=== PATIENT | female | born 1970 | race Caucasian/White ===

== ENCOUNTER 2023-01-15 13:43 | Outpatient (AMB) | payer OTHER, SELFPAY ==
--- NOTE | 2023-01-15 14:04 | MHC.OFFWIV ---
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 Allergies Penicillins [PENICILLINS] Allergy (Intermediate, Unverified 01/15/23 14:13) RASH Do you need a note to return to daycare/school/sports/work: No HPI HPI Comments History of Present Illness Details This is a 53-year-old female who presents to the office today for sick visit. Patient complaining of dysuria and increased urinary frequency/urgency x1 day. Patient denies fever/chills. She denies any flank or back pain. She denies any abdominal pain or nausea/vomiting/diarrhea. She denies any hematuria. Patient is otherwise feeling well. Review of Systems Const All systems reviewed & are unremarkable except as noted in HPI and below Reports no additional complaints Eyes Reports no additional complaints ENT Reports no additional complaints Card Reports no additional complaints Resp Reports no additional complaints GI Reports no additional complaints Reports no additional complaints Musc Reports no additional complaints Skin/Breast Reports system reviewed and no additional complaints, except as documented Neuro Reports no additional complaints Psych Reports no additional complaints Endo Reports no additional complaints Ethan/Lymph Reports no additional complaints Aller/Immun Reports no additional complaints Physical Exam Vital Signs: Last Vital Signs Temp 98.7 F 01/15/23 14:08 Pulse 94 01/15/23 14:08 BP 138/78 01/15/23 14:08 Pulse Ox 97 01/15/23 14:08 Oxygen Delivery Method Room Air 01/15/23 14:08 BMI result Body Mass Index 33.6 Const General: cooperative, healthy appearing, no acute distress and well developed Orientation/consciousness: patient oriented x3 HEENT Head: Yes normal to inspection Ears: hearing grossly normal bilaterally General nose exam: Normal external nose present Face and sinus: Yes normal facial exam Mouth: Normal oral and palatal mucosa present Eyes General: appearance normal, both eyes and all related structures Pupils: Equal, round and reactive pupils present EOM: EOMs intact bilaterally Resp Effort & Inspection: normal respiratory effort and no respiratory distress Auscultation: clear to auscultation bilaterally Cardio Rate: regular rate Rhythm: regular rhythm Heart sounds: no gallops, no murmurs and no rubs Peripheral pulses: Peripheral pulses 2+ throughout GI Inspection: No distended Palpation (GI): Soft to palpation and nontender Auscultation: normal bowel sounds General: Yes no CVA tenderness Back/Spine/Pelvis Back: no CVA tenderness Skin General skin exam: no rashes or lesions noted Neuro General: patient oriented x3 Cranial nerves: Yes CN's II-XII intact bilaterally and Yes Equal, round and reactive pupils present Gait exam (Neuro): Normal gait present Motor exam (neuro): 5/5 motor strength present throughout Extrem General: Yes normal to inspection, Yes full ROM and Yes no clubbing, cyanosis or edema Psych Appearance: grossly normal Mental Status: mental status grossly normal Results AMB Urinalysis, Automated UA Leukoctes 3 Landen/uL Last Edit by Li Mohr CMA on 01/15/23 14:21 UA Nitrite Negative Last Edit by Li Mohr CMA on 01/15/23 14:21 UA Urobilinogen 0.2 mg/dL Last Edit by Li Mohr CMA on 01/15/23 14:21 UA Protein 0 mg/dL Last Edit by Li Mohr CMA on 01/15/23 14:21 UA pH 6.0 Last Edit by Li Mohr CMA on 01/15/23 14:21 UA Blood 1 Vikash/uL Last Edit by Li Mohr CMA on 01/15/23 14:21 UA Specific [place] 1.010 Last Edit by Li Mohr CMA on 01/15/23 14:21 UA Ketone Negative Last Edit by Li Mohr CMA on 01/15/23 14:21 UA Bilirubin 0 mg/dL Last Edit by Li Mohr CMA on 01/15/23 14:21 UA Glucose 0 mg/dL Last Edit by Li Mohr CMA on 01/15/23 14:21 Assessment & Plan Assessment & Plan (1) UTI (urinary tract infection): Code(s): N39.0 - Urinary tract infection, site not specified Plan Patient presenting to the office complaining of urinary symptoms including dysuria and increased urinary frequency/urgency. POCT urinalysis shows positive leukocyte esterase. Patient's vital signs are stable, physical exam is benign, and patient is overall nontoxic appearing. No CVA tenderness or systemic symptoms to suggest acute pyelonephritis. Patient is safe to be discharged home. History and physical most consistent with an acute uncomplicated urinary tract infection. Patient sent home on PO trimethoprim-sulfamethoxazole twice daily x7 days. Recommended symptomatic management including increased fluids, Advil/Tylenol as needed for pain as long as patient has no medical contraindications, and PO phenazopyridine three times daily as needed x 3 days for bladder spasms. Patient was advised to follow-up here or proceed directly to the emergency room if they were to develop fever/chills, nausea/vomiting, flank/back pain, or worsening/persistent symptoms. Patient verbalizes understanding and they are in agreement with the plan. Orders: Orders Urine Culture Today R30.0 - Dysuria AMB Urinalysis Automated Today R30.0 - Dysuria Medications: New sulfamethoxazole-trimethoprim 800-160 mg 1 tab PO BID 14 tabs 0RF phenazopyridine 200 mg PO TID PRN 9 tabs 0RF pain Coding Level of Care Code New Pt Level 3 (33234) Diagnoses UTI (urinary tract infection) N39.0
[2023-01-15 14:08] VITALS: BP 138/78; PULSE 94; TEMP 37.1; O2SAT 97; BMI 33.6
== END 2023-01-15 14:30 | disposition home or self-care (01) ==
PROVIDERS: PCP Nurse Practitioner Adult Health; Visit Provider Physician Assistant Medical
DX: N39.0 Urinary tract infection, site not specified (principal); R30.0 Dysuria
CPT/HCPCS: 81003; 99051; 99203

== ENCOUNTER 2023-01-15 15:13 | Outpatient (REF) | payer OTHER, SELFPAY | END 2023-01-15 15:14 | disposition home or self-care (01) | LOC: HO.HMGCLNP 15:13 | PROVIDERS: Visit Provider Physician Assistant Medical | DX: R30.0 Dysuria (principal) | CPT/HCPCS: 87086 ==

== ENCOUNTER 2024-02-24 18:29 | Emergency (ER) | payer OTHER, SELFPAY ==
--- NOTE | ~2024-02-24 | XR_ITS ---
EXAMINATION: XR ANKLE, LEFT CLINICAL INFORMATION: Bruising to lateral ankle status post fall COMPARISON: None available. TECHNIQUE: AP, lateral, and mortise views of the left ankle. FINDINGS: No fracture. Alignment is anatomic. No erosions. Joint spaces are maintained. Soft tissues are normal. XR/XR ankle LT min 3V IMPRESSION: Normal left ankle. Electronically signed by: Seb Dwyer DO 02/24/2024 09:43 PM EDT
--- NOTE | ~2024-02-24 | XR_ITS ---
EXAMINATION: XR FOOT, LEFT CLINICAL INFORMATION: Bruising to lateral foot COMPARISON: None available. TECHNIQUE: AP, lateral, and oblique views of the left foot. FINDINGS/ XR/XR foot LT min 3V IMPRESSION: Minimally displaced oblique fracture through the fifth distal metatarsal with overlying soft tissue swelling. No other fractures are identified. No radiopaque foreign bodies. Electronically signed by: Seb Dwyer DO 02/24/2024 09:45 PM EDT
[2024-02-24 19:39] VITALS: BP 130/70; PULSE 88; RESP 16; TEMP 37.1; O2SAT 95; BMI 36.0
--- NOTE | 2024-02-24 19:41 | ED.LOWEXIN ---
HPI - Extremity Injury (Lower) General Chief Complaint: Extremity Injury, Lower Stated Complaint: LT foot inj Time Seen by Provider: 02/24/24 20:45 Source: patient Mode of arrival: ambulatory Limitations: no limitations History of Present Illness HPI Narrative: Patient is a 54-year-old female presents emergency department for evaluation after mechanical trip and fall down a step that occurred yesterday afternoon. Reports an inversion injury to the foot. Endorsing pain to the ankle in the lateral aspect of her left foot. Notable ecchymosis and swelling over the lateral midfoot. Has been using crutches to get around. Took Tylenol prior to arrival. Denies numbness tingling or cold sensation to the foot.. Related Data Home Medications ?Medication ?Instructions ?Recorded ?Confirmed bupropion HCl 150 mg 24 hr tablet, 150 mg PO QAM 01/15/23 extended release buspirone 10 mg tablet mg PO 01/15/23 clonazepam 0.5 mg tablet 1 mg PO BID 01/15/23 lamotrigine 200 mg tablet 200 mg PO BID 01/15/23 solifenacin 5 mg tablet 5 mg PO DAILY 01/15/23 venlafaxine 225 mg tablet,extended 225 mg PO DAILY 01/15/23 release 24 hr Previous Rx's ?Medication ?Instructions ?Recorded phenazopyridine 200 mg tablet 200 mg PO TID PRN pain #9 tabs 01/15/23 sulfamethoxazole 800 1 tab PO BID #14 tabs 01/15/23 mg-trimethoprim 160 mg tablet oxycodone 5 mg tablet 5 mg PO Q6H PRN pain #10 tabs 02/24/24 Allergies Allergy/AdvReac Type Severity Reaction Status Date / Time No Known Allergies Allergy Verified 02/24/24 19:44 Review of Systems Review of Systems: Yes all other systems are reviewed and are negative [facility] Past Medical History Attestation statement: The following information was validated with the patient. Source: old records reviewed Social History Social History Advance Directives: No Advance Directives Information Provided: No Physical Exam Vital Signs: Vital Signs: Last Vital Signs Temp 97.6 F 02/24/24 22:25 Pulse 80 02/24/24 22:25 Resp 18 02/24/24 22:25 BP 120/72 02/24/24 22:25 Pulse Ox 98 02/24/24 22:25 O2 Del Method Room Air 02/24/24 22:25 BMI result Body Mass Index 36.0 Appearance: Alert.?Oriented to person, place and time. No acute distress.?Normal affect. CVS: Heart sounds normal. Normal heart rate and rhythm.? Pulses normal.?? Respiratory: No respiratory distress.? Lung sounds clear to auscultation bilaterally?? Abdomen: Soft and non-tender. Normoactive bowel sounds. Skin: Skin warm and dry.? Normal skin color.? Extremities: No lower extremity edema.? 2+ DP/PT pulse bilaterally. Left mid foot with ecchymosis and swelling, decreased AROM to the ankle Neuro: Moves all extremities spontaneously. Sensation intact bilaterally. . No focal neuro deficits. Ambulates with antalgic gait. Course Course Course Narrative: This is a Rapid Medical Examination (RME) performed by Jone Molina PA-C in triage. Full HPI, ROS, assessment and treatment plan per primary provider in the Main ED. 54 yo female here for eval of left foot/ ankle pain s/p tripping down a step around 1500 yesterday. no head strike or loc. no thinners. unable to bear wt on the foot, using crutches at home. took tylenol [employer]MENT [employer] in ED. + noted swelling/ ecchymosis to lateral left foot/ ankle. ttp. nv intact distally. Plan: xr Medical Decision Making Medical Decision Making MDM Narrative: Patient is a 54-year-old female who presents emergency department for evaluation after mechanical trip and fall yesterday afternoon. Endorsing pain to the left foot and ankle, antalgic gait, pain is worse with weight-bearing. As localized swelling to the mid foot with ecchymosis concerning for possible fracture. XR obtained and reveals a 5th metatarsal shaft fracture, no acute findings of the ankle, patient was placed in a posterior short-leg splint, remained neurovascularly intact distally after application. She endorsed no head strike with a small consciousness, neurologically she is intact. Outpatient follow-up with Orthopedics, reviewed worrisome signs and symptoms that would warrant re-evaluation in the emergency department, discussed conservative treatment. All questions answered. Stable for discharge Differential Diagnosis Differential Diagnoses: The differential diagnosis associated with the presentation includes (See narrative above) Independent Interpretation I performed an independent interpretation of an: Plain X-Ray (Left 5th metatarsal shaft fracture) Radiology Impression Discussion of test interpretation with radiology: I have reviewed the radiologist's reading. Radiologist Impression: XR/XR ankle LT min 3V IMPRESSION: Normal left ankle. XR/XR foot LT min 3V IMPRESSION: Minimally displaced oblique fracture through the fifth distal metatarsal with overlying soft tissue swelling. No other fractures are identified. No radiopaque foreign bodies. Independent Historian Clinical information obtained from an independent historian. History obtained from or confirmed by: Spouse External Record Review External record reviewed: Outpatient record and Other (AREA FORESTER reviewed) Prescription Management I considered prescription management with: Pain Medication Procedures Orthopedic Splinting/Casting Injury #1: Side: left Lower Extremity Injury Location: foot Lower Extremity Immobilizer: posterior splint Other Orthopedic Equipment: crutches Discharge Plan Discharge Clinical Impression: Metatarsal fracture Patient Disposition: Home, Self-Care Instructions: Crutch Instructions (ED), Foot Fracture in Adults (ED) Additional Instructions: Be sure to rest, apply ice for 10-15 minutes 3-4 times daily, elevate the leg above the level of the chest. You can take ibuprofen 200 mg, 3 tablets (600mg) every 6-8 hours as needed for pain, in addition to Tylenol 500 mg, 2 tablets (1,000mg) every 4-6 hours as needed for pain, but not to exceed 3 doses daily (3,000mg).? For severe pain that is unrelieved by ibuprofen/Tylenol you may take oxycodone. This is a narcotic medication. It can be addicting. It may make you drowsy. You should not drive, drink alcohol, or work while taking this medication. This splint must remain in place at all times can not get wet. Contact the orthopedic office first thing Tuesday to arrange for a follow-up visit. Return to emergency department any new or worsening symptoms or concerns Prescriptions: New oxycodone 5 mg tablet 5 mg PO Q6H PRN (Reason: pain) Qty: 10 0RF Rx Instructions: Partial Fill upon patient request. No Action clonazepam 0.5 mg tablet 1 mg PO BID venlafaxine 225 mg tablet extended release 24hr 225 mg PO DAILY bupropion HCl 150 mg tablet extended release 24 hr 150 mg PO QAM buspirone 10 mg tablet PO solifenacin 5 mg tablet 5 mg PO DAILY lamotrigine 200 mg tablet 200 mg PO BID sulfamethoxazole-trimethoprim 800-160 mg tablet 1 tab PO BID Qty: 14 0RF phenazopyridine 200 mg tablet 200 mg PO TID PRN (Reason: pain) Qty: 9 0RF Referrals: Nohemy Gross PA-C [[facility]] - Discharge Date/Time: 02/24/24 23:47 Print Language: [place]an
[2024-02-24 22:25] VITALS: BP 120/72; PULSE 80; RESP 18; TEMP 36.4; O2SAT 98
== END 2024-02-24 23:47 | disposition home or self-care (01) ==
PROVIDERS: Emergency Provider Internal Medicine
DX: S92.352A Displaced fracture of fifth metatarsal bone, left foot, initial encounter for closed fracture (principal); W10.8XXA Fall (on) (from) other stairs and steps, initial encounter; Y93.89 Activity, other specified; Y92.9 Unspecified place or not applicable; Y99.9 Unspecified external cause status
CPT/HCPCS: 29515; 73610; 73630; 99282; 99283

== ENCOUNTER 2024-03-01 09:13 | Outpatient (AMB) | payer OTHER, SELFPAY ==
[2024-03-01 09:15] VITALS: BMI 36.0
--- NOTE | 2024-03-01 09:15 | MHC.OFFVIS ---
Vital Signs 03/01/24 09:15 Height 5 ft 4 in Weight 210 lb BMI 36.0 Intake Visit Reasons: FC - left 5th metatarsal fx, DOI 02/23/24 Intake Note: Damari is a 54 year old female who presents today for a evaluation of her left 5th metatarsal fx, DOI 02/23/24. Patient reports she had a mechanical trip and fall down a step. She mentions that missed the lat step in her basement. Allergies No Known Allergies Allergy (Verified 03/01/24 09:26) Medication List - Last Reconciled 03/01/24 by Nohemy Gross PA-C bupropion HCl XL 150 mg PO QAM clonazepam 1 mg PO BID lamotrigine 200 mg PO BID oxycodone 5 mg PO Q6H PRN phenazopyridine 200 mg PO TID PRN solifenacin 5 mg PO DAILY sulfamethoxazole-trimethoprim 800-160 mg 1 tab PO BID venlafaxine ER 225 mg PO DAILY HPI HPI FC - left 5th metatarsal fx, DOI 02/23/24: Details: 54-year-old female who presents in the office today, as a new patient, for an evaluation of left fifth distal metatarsal fracture. The patient presented to the ED on 02/24/24 status post a mechanical trip and fall down a step, which occurred on 02/23/24. He reported pain in the lateral aspect of the left ankle. X-rays of the left foot and left ankle were obtained. She was placed in a posterior short-leg splint and was recommended resting, elevation, and icing. She was advised to take OTC ibuprofen 200 mg 3 tablets Q6-8H PRN or OTC Tylenol 500 mg 2 tablets Q4-6H PRN not exceeding 3000 mg daily for pain. The patient was prescribed oxycodone 5 mg pO Q6H PRN for pain and recommended to take it should the pain be unrelieved by ibuprofen or Tylenol. While in the office today, the patient confirms that she had a mechanical trip and fall, by missing the last step in her basement. Review of Systems Const All systems reviewed & are unremarkable except as noted in HPI and below Physical Exam Vital Signs: BMI result Body Mass Index 36.0 Const General: cooperative and no acute distress Orientation/consciousness: patient oriented x3 Resp Effort & Inspection: normal respiratory effort and able to speak in complete sentences Cardio Peripheral pulses: Peripheral pulses 2+ throughout Skin General skin exam: no rashes or lesions noted Neuro General: patient oriented x3 Extrem Other: Left foot: Diffuse ecchymosis at the base of the toes and along the lateral aspect of the heel. Slight tenderness to palpation over the fifth metatarsal over the fracture. Able to perform dorsiflexion, plantar flexion, pronation and supination with mild discomfort. Sensation intact. Pedal pulse intact. Office Procedures AMB Fracture Care Fracture Billing Code: Fracture Billing Code Assessment & Plan Assessment & Plan (1) Fracture of fifth metatarsal bone of left foot: Code(s): S92.352A - Displaced fracture of fifth metatarsal bone, left foot, initial encounter for closed fracture Category: Medical Plan Ms. Gonzalez is a 54-year-old female who presents in the office today, as a new patient, for an evaluation of left fifth distal metatarsal fracture. The patient presented to the ED on 02/24/24 status post a mechanical trip and fall down a step, which occurred on 02/23/24. He reported pain in the lateral aspect of the left ankle. X-rays of the left foot and left ankle were obtained. She was placed in a posterior short-leg splint and was recommended resting, elevation, and icing. She was advised to take OTC ibuprofen 200 mg 3 tablets Q6-8H PRN or OTC Tylenol 500 mg 2 tablets Q4-6H PRN not exceeding 3000 mg daily for pain. The patient was prescribed oxycodone 5 mg pO Q6H PRN for pain and recommended to take it should the pain be unrelieved by ibuprofen or Tylenol. While in the office today, the patient confirms that she had a mechanical trip and fall, by missing the last step in her basement. The patient was provided a short walking boot, off the shelf. She may weight bear as tolerated. Follow-up will be in 4 weeks with repeat x-rays, or sooner if needed. X-rays of the left foot which were obtained while in the office today and were reviewed by me, Nohemy Gross PA-C, revealed: Fifth metatarsal shaft fracture. X-rays of the left foot, obtained on 02/24/24, revealed: Minimally displaced oblique fracture through the fifth distal metatarsal with overlying soft tissue swelling. No other fractures are identified. No radiopaque foreign bodies. X-rays of the left ankle, obtained on 02/24/24, revealed: Normal left ankle. Orders: Orders XR foot LT min 3V Today M79.673 - Pain in unspecified foot Patient Instructions: Scribed by Norma Gloria, medical doctor md/medical director, for Nohemy Anthonymalissa PORTER on 03/01/24 at 09:32 am EST. Coding Level of Care Code New Pt Level 4 (90438) Diagnoses Fracture of fifth metatarsal bone of left foot S92.352A CPT Codes Fracture Care - Fracture Billing Code: Fracture Billing Code ([id number])
== END 2024-03-01 09:50 | disposition home or self-care (01) ==
PROVIDERS: Visit Provider Physician Assistant
DX: S92.352A Displaced fracture of fifth metatarsal bone, left foot, initial encounter for closed fracture (principal)
CPT/HCPCS: 99203

== ENCOUNTER 2024-03-01 13:56 | Outpatient (REF) | payer OTHER, SELFPAY ==
--- NOTE | ~2024-03-01 | XR_ITS ---
EXAMINATION: XR FOOT, LEFT CLINICAL INFORMATION: Pain in the foot COMPARISON: X-rays of the left foot February 24, 2024 TECHNIQUE: AP, lateral, and oblique views of the left foot. FINDINGS: The oblique fracture of the distal 5th metatarsal is redemonstrated but unchanged appearance and alignment. No callus formation noted. The remaining bones joints and soft tissues are unremarkable. XR/XR foot LT min 3V IMPRESSION: Unchanged appearance of distal 5th metatarsal fracture. Electronically signed by: Milo Romero MD 03/07/2024 11:15 AM EDT
== END 2024-03-01 13:57 | disposition home or self-care (01) ==
LOC: HO.HOSX 13:56
PROVIDERS: Visit Provider Physician Assistant
DX: M79.673 Pain in unspecified foot (principal); S92.352D Displaced fracture of fifth metatarsal bone, left foot, subsequent encounter for fracture with routine healing
CPT/HCPCS: 73630

== ENCOUNTER 2024-03-29 10:09 | Outpatient (REF) | payer OTHER, SELFPAY | END 2024-03-29 10:10 | disposition home or self-care (01) | LOC: HO.HOSX 10:09 | PROVIDERS: Visit Provider Physician Assistant | DX: M79.672 Pain in left foot (principal) | CPT/HCPCS: 73630 ==

== ENCOUNTER 2024-03-29 12:54 | Outpatient (AMB) | payer OTHER, SELFPAY ==
--- NOTE | 2024-03-29 13:10 | A.OFFVIS_ITS ---
Intake Visit Reasons: OV- left 5th metatarsal fx, DOI 02/23/24-w/xray Intake Note: Damari is a 54 year old female who presents today for a follow up of her left 5th metatarsal fx, DOI 02/23/24. Patient reports she is having some swelling and soreness on the lateral aspect of her foot. Denies numbness and tingling in her toes. Allergies No Known Allergies Allergy (Verified 03/29/24 13:16) HPI HPI OV- left 5th metatarsal fx, DOI 02/23/24-w/xray: Details: 54-year-old female who presents in the office today for a follow-up of left fifth distal metatarsal fracture status post mechanical trip and fall down a step, which occurred on 02/23/24. I last saw the patient in the office on 03/01/2024 when she was placed in a short walking boot and recommended she may bear weight as tolerated. While in the office today, the patient reports having mild edema and soreness on the lateral aspect of her left foot. She denies numbness or tingling sensation in the left toes. Review of Systems Const All systems reviewed & are unremarkable except as noted in HPI and below Physical Exam Const General: cooperative, healthy appearing and no acute distress Orientation/consciousness: patient oriented x3 Resp Effort & Inspection: normal respiratory effort and able to speak in complete sentences Cardio Rate: regular rate Peripheral pulses: Peripheral pulses 2+ throughout GI Palpation (GI): Soft to palpation Skin General skin exam: no rashes or lesions noted Lesions: no lesions Rashes: no rashes Neuro General: patient oriented x3 Extrem Other: Left foot: Slight tenderness to palpation over the fifth metatarsal over the fracture with associated mild edema. Able to perform dorsiflexion, plantar flexion, pronation and supination with mild discomfort. Sensation intact. Pedal pulse intact. Assessment & Plan Assessment & Plan (1) Fracture of fifth metatarsal bone of left foot: Code(s): S92.352A - Displaced fracture of fifth metatarsal bone, left foot, initial encounter for closed fracture Category: Medical Plan Ms. Gonzalez is a 54-year-old female who presents in the office today for a follow-up of left fifth distal metatarsal fracture status post mechanical trip and fall down a step, which occurred on 02/23/24. I last saw the patient in the office on 03/01/2024 when she was placed in a short walking boot and recommended she may bear weight as tolerated. While in the office today, the patient reports having mild edema and soreness on the lateral aspect of her left foot. She denies numbness or tingling sensation in the left toes. The patient has weaned herself into St shoes at this time. I did educate her to immediately return to the boot if she experiences increased pain. She reports that she is doing very well with very minimal discomfort. I did offer her to follow up in four weeks with repeat x-rays; however, she declined at this time. I did educate the patient that she should contact the office if she has any questions, concerns or increase in pain. Follow up will be PRN, or sooner if needed. X-rays of the left foot, which were obtained while in the office today and were reviewed by me, Nohemy Gross PA-C, revealed: Routine healing of the fifth distal metatarsal fracture. Orders: Orders XR foot LT min 3V 03/29/24 M79.673 - Pain in unspecified foot Patient Instructions: Scribed by Norma Gloria, medical technician assistant, for Nohemy Gross PA-C on 03/29/24 at 1:50 pm EST. Coding Level of Care Code Global (41571) Diagnoses Fracture of fifth metatarsal bone of left foot S92.352A
== END 2024-03-29 13:51 | disposition home or self-care (01) ==
LOC: HO.HOS 12:54
PROVIDERS: Visit Provider Physician Assistant
DX: S92.352A Displaced fracture of fifth metatarsal bone, left foot, initial encounter for closed fracture (principal)
CPT/HCPCS: 99213

== ENCOUNTER 2024-12-07 12:57 | Outpatient (REF) | payer OTHER, SELFPAY ==
--- NOTE | ~2024-12-07 | US_ITS ---
CLINICAL HISTORY: menopausal bleeding Ultrasound of the female pelvis Comparison: None provided Technique: Grayscale ultrasound with assistance of color Doppler. Transabdominal scanning performed for overall anatomy. Transvaginal scanning performed for better anatomic delineation. Findings: Retroflexed uterus measures 8.2 x 4.1 x 4.5 cm. Heterogeneous myometrium, intramural fibroid in the posterior uterine body 2.7 x 1.6 x 1.6 cm. Diverging fundal endometrium, flat external fundus contour, probably arcuate uterus, the endometrium is homogeneously hyperechoic, 6 mm in thickness, no focal lesion is seen. Unremarkable cervix. Normal right ovary, 2.5 x 1.4 x 1.2 cm. No abnormal vascular flow. Normal left ovary, 2.3 x 1.0 x 1.0 cm. No abnormal vascular flow. No free fluid. Impression: 6 mm endometrium without focal lesion seen. This document has been electronically signed by: Mariaelena Adhikari MD on 12/07/2024 14:22:13
--- OUTSIDE RECORDS SUMMARY | 2024-12-07 12:58 | XMS_ITS | Encounter Summary ---
Author Organization [facility] Address [address] [place] [phone] Phone Care Team Providers Care Supervisor [employer] Name Role Phone Pcp, Unknown Primary Care Provider Unavailabl e Encounter Details Date Type Department Care Team (Latest Contact Info) Description 01/07/2021 Transcribe Orders Virtual Department [address] [place] [address] Graciela Conroy, DO [address] [place] [address] [email or web address] Cough (Primary Dx); Sore throat; Runny nose Social History Tobacco Use Types Packs/Day Years Used Date Smoking Tobacco: Never Assessed Comments Unknown Sex and Gender Information Value Date Recorded Sex Assigned at Not on file Legal Sex Female 9:36 PM EDT Gender Identity Not on file Sexual Orientation Not on file documented as of this encounter Plan of Treatment Not on file documented as of this encounter Visit Diagnoses Diagnosis Cough- Primary Sore throat Acute pharyngitis Runny nose Other diseases of nasal cavity and sinuses documented in this encounter Additional Health Concerns Infection Onset Date Last Indicated Resolved Time CoV-Risk 01/07/2021 01/07/2021 01/17/2021 1:24 AM EDT documented as of this encounter Care Teams Supervisor [employer] Relationship Specialty Start Date End Date Pcp, Unknown PCP - General 02/23/18 documented as of this encounter Additional Source Comments The information contained in this document represents components of the legal health record. It is not the complete legal health record.[facility]
--- OUTSIDE RECORDS SUMMARY | 2024-12-07 12:59 | XMS_ITS | Data Portability ---
Author Organization [facility] Office Address [address] [place] [address] Assessment Encounter Date Assessment Date Assessment LastModified by Organization Details LastModified Time 07/19/2024 07/19/2024 I spent 30 minutes of ckeg-mf-kyim counselling and care coordination time with the patient. This includes reviewing medical records (medical, surgical, family and social history); updating medication and allergy information in the electronic health record; and ordering labs, medications, and education materials to continue patient care. [email or web address] Not available 07/19/2024 12:13:45 07/25/2024 07/25/2024 I spent 19 minutes of njjn-gb-iiwo counselling and care coordination time with the patient. This includes reviewing medical records (medical, surgical, family and social history); updating medication and allergy information in the electronic health record; and ordering labs, medications, and education materials to continue patient care. [email or web address] Not available 07/25/2024 11:45:54 08/28/2024 08/28/2024 I spent 30 minutes of ywoe-ux-vqvc counselling and care coordination time with the patient. This includes reviewing medical records (medical, surgical, family and social history); updating medication and allergy information in the electronic health record; and ordering labs, medications, and education materials to continue patient care. [email or web address] Not available 08/28/2024 19:35:44 10/02/2024 10/02/2024 I spent 15 minutes of jkei-tv-llnd counselling and care coordination time with the patient. This includes reviewing medical records (medical, surgical, family and social history); updating medication and allergy information in the electronic health record; and ordering labs, medications, and education materials to continue patient care. [email or web address] Not available 10/02/2024 12:28:39 11/27/2024 11/27/2024 I spent 30 minutes of bzkp-ga-qttf counselling and care coordination time with the patient. This includes reviewing medical records (medical, surgical, family and social history); updating medication and allergy information in the electronic health record; and ordering labs, medications, and education materials to continue patient care. [email or web address] Not available 11/27/2024 13:48:06 Plan of Treatment Reminders Order Date Submit Date Provider Last Modified By Organization Details Last Modified Time Details Appointments [id number] 2024 07:30A M Trudi Jenkins NP Not available Not available Not available Lab lipid panel, serum 2024 025 ELISSA Calderon, [address], [place], [address], 11/27/2024 10:54:26 HbA1c (hemoglob in A1c), blood 2024 025 ELISSA Calderon, [address], [place], [address], 11/27/2024 10:54:26 CMP, serum or plasma 2024 025 ELISSA Calderon, [address], [place], [address], 11/27/2024 10:54:25 FSH (follicle -stimulat ing hormone), serum 2024 025 ELISSA Calderon, [address], [place], [address], 11/27/2024 10:54:26 Referral nutrition ist/dieti gely referral 2024 025 PAOLA Hernandez, [facility] [address], [place], [address], 11/27/2024 10:55:25 gynecolog ist referral - post menopause bleeding - US ordered, labs ordered 2024 025 PAOLA Jefferson MD, [address], [place], [address], 11/27/2024 10:53:27 Procedures None recorded. Surgeries None recorded. Imaging None recorded. Medication Orders Semagluti de MIDI 2024 [facility], [address] [facility] [address], [place], [address], 11/20/2024 16:37:49 ondansetr on 4 mg disintegr ating tablet 2024 [id number], [address] [place], [address], 10/02/2024 11:43:02 estradiol 0.05 mg/24 hr semiweekl y transderm al patch 2024 025 [id number], [address] [place], [address], 10/02/2024 11:41:50 progester one micronize d 100 mg capsule 2024 025 [id number], [address] [place], [address], 10/02/2024 11:43:40 Semagluti de MIDI 2024 025 [email or web address], [address] [facility] [address], [place], [address], 11/20/2024 16:37:46 estradiol 0.0375 mg/24 hr semiweekl y transderm al patch 2024 025 [id number], [address] [place], [address], 10/02/2024 11:40:48 progester one micronize d 100 mg capsule 2024 025 [id number], [address] [place], [address], 07/19/2024 10:12:35 Patient TargetsNo targets recorded. Patient Instructions Encounter Date Encounter Id Patient Instructions Last Modified By Organization Details Last Modified Time 07/19/2024 [id number] Any requested follow-up visits are listed below in the Plan of Care section. Go directly to the i'mma gasoline attendant at [email or web address] to book a time. [email or web address] Not available 07/19/2024 09:59:37 It was a pleasur e to meet with you today! We discussed your health concerns related to your weight and the side effects you've been experiencing from your current medication, semaglutide. -------- Your Care Plan -------- Together, we decided that you would: - Continue taking semaglutide at a dose of 1.5 milligrams. I will send this prescription to [facility]. Please remember to take this medication as prescribed and monitor your symptoms closely. If you experience severe discomfort or other concerning side effects, please contact me immediately. - Consider the option of switching to tirzepatide, a compounded medication available from [facility]. This is an alternative to semaglutide that may have a different side effect profile. If you decide to switch, please send me a message on the portal and I can arrange the prescription. - Explore the cost savings program for Zepbound, an FDA-approved version of tirzepatide. This may be another alternative to consider if the side effects from semaglutide continue to be problematic. I will include the website link in your notes so you can review the options and costs. - Continue taking your other medications as prescribed, including bupropion (150mg), Adderall (10mg, 3 times a day), and venlafaxine (225mg). I will also send in a prescription for estradiol, as you mentioned you may be running low. - Ensure you are eating regularly to help manage the nausea associated with semaglutide. Try to pack as much nutrition as possible into small meals throughout the day. - Schedule a follow-up appointment with me on August 13. In the meantime, please keep me updated on your symptoms and any changes in your medication regimen through the portal. Please carefully review the care plan we have decided upon, specific information regarding your medication, and important details about your treatment detailed above. Thank you for trusting us with your care! [email or web address] [email or web address]?utm_source=z epbound&utm_medium=r eferral&utm_campaign =bp30_fjyrjka-k-qcva ound_referral&utm_co ntent=yqwt-zqob-frl- placement [email or web address] Not available 07/19/2024 12:10:56 07/25/2024 [id number] Any requested follow-up visits are listed below in the Plan of Care section. Go directly to the i'mma gasoline attendant at [email or web address] to book a time. [email or web address] Not available 07/25/2024 07:56:31 It was a pleasur e to meet with you today, Damari! We discussed your health concerns related to weight management, menopausal symptoms, and some gastrointestinal discomfort you've been experiencing. -------- Your Care Plan -------- Together, we decided that you would: - Schedule an ultrasound to investigate the cause of your abnormal uterine bleeding. This is an important step to rule out serious conditions such as endometrial cancer. The ultrasound is a low-risk imaging procedure that can provide valuable information about your health. - Continue with the semaglutide 1.5 milligrams weekly for weight management. The symptoms of nausea, bloating, and feeling uncomfortably full that you've been experiencing are common side effects of this medication and should continue to improve as your body adjusts to the medication, as they have already. If these symptoms persist or worsen, please contact us. - Follow up with Trudi in three weeks to monitor your progress and adjust treatment as needed. If you have any concerns or issues before your next appointment, please don't hesitate to reach out to us. Please carefully review the care plan we have decided upon, specific information regarding your medication, and important details about your treatment detailed below. Thank you for trusting us with your care! [email or web address] Not available 07/25/2024 11:48:22 08/28/2024 [id number] Any requested follow-up visits are listed below in the Plan of Care section. Go directly to the i'mma gasoline attendant at [email or web address] to book a time. [email or web address] Not available 08/28/2024 07:59:20 It was a pleasur e to meet with you today! We discussed your health concerns related to sleep issues, weight management, and postmenopausal bleeding. -------- Your Care Plan -------- Together, we decided that you would: - Start taking 200 mg of progesterone at bedtime for the next few nights to help with sleep. This may cause increased drowsiness, so avoid taking it on nights when you need to work. - Ensure you are taking your progesterone at night, even if you return to the 100 mg dose. - Increase your semaglutide dose to 70 units (1.75 mg) starting tomorrow, and continue this dose until our next visit. - Reschedule and complete your ultrasound at [facility] to evaluate the cause of your postmenopausal bleeding. - Follow-up appointment scheduled for September 26 at 11:45 AM to monitor progress with sleep and weight management. Please carefully review the care plan we have decided upon, specific information regarding your medication, and important details about your treatment detailed below. Thank you for trusting us with your care! [email or web address] Not available 08/28/2024 09:38:27 10/02/2024 [id number] Any requested follow-up visits are listed below in the Plan of Care section. Go directly to the i'mma gasoline attendant at [email or web address] to book a time. Not available 10/02/2024 11:36:13 It was a Affimed Therapeuticsur e to meet with you today! We discussed your health concerns related to estrogen dosage, semaglutide administration, and sleep disturbances. Your Care Plan Together, we decided that you would: - Increase your estrogen dosage from 0.0375 to 0.05. Start this new dosage as soon as it arrives. - Maintain your current semaglutide dosage of 70 units for the next two weeks while your body adjusts to the new estrogen dosage. - After two weeks on the new estrogen dosage, increase your semaglutide dosage to 80 units starting the first week of October. - If you miss a week of semaglutide, resume at 35 units for one week before returning to 70 units for another week or two, then increase to 80 units. - Continue taking progesterone at the current dosage of 200 mg every night before bed. - A new prescription for Zofran has been sent to help manage any potential nausea from semaglutide. - A follow-up appointment has been scheduled for October 31 at 11:30 AM. Please carefully review the care plan we have agreed upon above, which includes specific information about your medication adjustments and other important details about your overall care. Thank you for trusting us with your care! [email or web address] Not available 10/02/2024 12:23:31 11/27/2024 [id number] Any requested follow-up visits are listed below in the Plan of Care section. Go directly to the i'mma gasoline attendant at [email or web address] to book a time. To schedule or modify your visit, access the i'mma portal here: [email or web address] Not available 11/27/2024 10:57:09 Dear Damari, It was great to see you today! Below is a summary of the plan we decided upon together: Overweight and weight maintenance - You have maintained your weight at 187 lb since stopping semaglutide, a 28 lb overall loss. - We are prioritizing nutrition support before considering any new medications. - I referred you to [facility], who will contact you directly and work with your insurance. - Focus on daily high-protein, high-fiber meals and begin light strength training to rebuild muscle. Irregular periods and menopause status - You experienced a full period November 23 after months without bleeding. - A pelvic ultrasound is scheduled for December 06 to evaluate the uterine lining. - I ordered blood work, including an FSH test, to clarify where you are in the menopause transition. - A referral has been sent to [facility] in [place] for an in-person evaluation; please call [phone] to set up an appointment. Labs and monitoring - Additional labs (cholesterol, HbA1c, comprehensive metabolic panel) [facility], [address] [place] [address]. - These results will also help guide your senior brand manager and investigations manager. Follow up - Let us meet again via telehealth in about one month to review your progress, labs, and ultrasound results. If you have any questions or experience any new symptoms, please do not hesitate to reach out to our office. 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 for Ab normal uterine bleeding post menopause bleeding - US ordered, labs ordered Referring Physician: Trudi Jenkins Gynecology, Encounter Date: 11/27/2024 Problems Name Problem SNOMED Code Status Onset Date Resolution Date Notes Provider Name and Address Organization Details Recorded Time Menopausal symptom 57948427 Active 2022 [place] [address] [place], [address], [facility] 3 08:26:17 Recurrent major depression 35735527 [place] 2023 [place] [address] [place], [address], [facility] [employer] [facility] 4 09:18:29 Obesity 466152420 Active 2023 [place] [address] [place], [address], [facility] [employer] [facility] 4 15:07:41 Attention deficit hyperactivi ty disorder, predominant ly inattentive type 45232398 Active 2023 [place] [address] [place], [address], [facility] [employer] [facility] 4 15:37:58 Abnormal uterine bleeding 5342498542344 0 Active 2023 [place] [address] [place], [address], [facility] [place] [facility] 4 20:00:55 Obstructive sleep apnea syndrome 00362985 Active 2024 [place], [address], [facility] [place] [facility] 5 19:36:41 Abnormal vaginal bleeding 072419205 Active 2024 [place], [address], [facility] [place] [facility] 5 13:48:52 Overweight 204515200 Active 2024 [place], [address], [facility] [place] [facility] 13:48:53 Problem Notes None recorded. Procedures Surgical History Date Name Laterality Status Provider Name and Address Organization Details Recorded Time 10/25/19 24 Date of Last Mammogram completed GIULIANA Bonilla [address] [id number], [facility] [place] [facility] 11/02/2023 15:35:29 05/23/19 20 Date of Last Colonoscopy [place], [address], [facility] [place] [facility] 12/01/2023 08:10:48 05/23/19 19 Date of Last Pap Smear completed GIULIANA Bonilla [address] [id number], [facility] [place] [facility] 12/01/2023 08:10:48 repair of stress incontinence by suprapubic sling completed GIULIANA Bonilla [address] [id number], [facility] [place] [facility] 07/19/2024 12:15:11 Imaging Results None recorded. Procedure Notes None recorded. Medical Equipment None Reported. Allergies No known drug allergies Medications Name Sig Start Date Stop Date Status Note LastModified by Organization Details LastModified Time Semaglutide MIDI Inject 1.5mg SQ weekly 02/27/ 2025 active Not Available Not Available Not Avai lable Bundle A: 0.25 mL/week - [facility]i Rx Inject 25 units (0.25mg) subcutane ously once weekly. 05/10 completed Not Available Not Available Not Available Bundle A: 0.25 mL/week - [facility] Rx Inject 25 units (0.25mg) SQ once weekly. 2023 active Not Available Not Available Not Avai lable Semaglutide MIDI Inject 1mg SQ weekly 2024 active Not Available Not Available Not Avai lable compounded medication INJECT 25 UNITS (0.25MG) SQ ONCE WEEKLY. active Not Available Not Available No t Available Bundle A: 0.25 mL/week - Midi Rx Inject 25 units (0.25mg) SQ once weekly. 2023 active Not Available Not Available Not Avai lable Semaglutide MIDI Inject 1mg SQ weekly 2024 active Not Available Not Available Not Avai lable compounded medication INJECT 25 UNITS (0.25MG) SQ ONCE WEEKLY. active Not Available Not Available No t Available Bundle B: 0.5 mL/week - Midi Rx Inject 50 units (0.5mg) subcutane ously once weekly. 07/02 completed Not Available Not Available Not Available Semaglutide MIDI Inject 2mg SQ weekly 11/20 completed Not Available Not Available Not Available lamotrigine 200 mg tablet TAKE 1 TABLET BY MOUTH TWICE A DAY active Not Available Not Available No t Available dextroamphe tamine-amph etamine 10 mg tablet TAKE 2 TABLETS (20MG) BY MOUTH DAILY IN THE MORNING & TAKE 1 TABLET (10MG) BY MOUTH DAILY AT MIDDAY. active Not Available Not Available No t Available clonazepam 0.5 mg tablet TAKE 1 TO 2 TABLETS BY MOUTH TWICE A DAY NEEDED 07/19 completed Not Available Not Available Not Available estradiol 0.05 mg/24 hr semiweekly transdermal patch APPLY 1 PATCH BY TRANSDERM AL ROUTE TWICE A WEEK active Not Available Not Available No t Available buspirone 10 mg tablet 07/20 completed Not Available Not Available Not Available dextroamphe tamine-amph etamine ER 10 mg 24hr capsule,ext end release TAKE 1 CAPSULE BY MOUTH EVERY DAY 07/02 completed Not Available Not Available Not Available estradiol 0.0375 mg/24 hr semiweekly transdermal patch APPLY 1 PATCH TRANSDERM ALLY TWICE A WEEK 10/02 completed Not Available Not Available Not Available ondansetron 4 mg disintegrat ing tablet PLACE 1 TABLET TWICE A DAY ON TOP OF TONGUE NEEDED FOR 30 DAYS, FOR NAUSEA. active Not Available Not Available No t Available progesteron e micronized 100 mg capsule TAKE 2 CAPSULES BY MOUTH EVERY DAY AT BEDTIME FOR 90 DAYS active Not Available Not Available No t Available estradiol 0.025 mg/24 hr semiweekly transdermal patch APPLY 1 PATCH TRANSDERM ALLY TWICE PER WEEK 07/02 completed Not Available Not Available Not Available dextroamphe tamine-amph etamine ER 15 mg 24hr capsule,ext end release TAKE 1 CAPSULE BY MOUTH EVERY DAY 07/19 completed Not Available Not Available Not Available bupropion HCl XL 150 mg 24 hr tablet, extended release TAKE 1 TABLET BY MOUTH EVERY DAY active Not Available Not Available No t Available solifenacin 5 mg tablet TAKE 1 TABLET BY MOUTH EVERY DAY 07/19 completed Not Available Not Available Not Available Adderall 07/19 completed Not Available Not Available Not Available venlafaxine ER 225 mg tablet,exte nded release 24 hr TAKE 1 TABLET BY MOUTH EVERY DAY DIRECTED active Not Available Not Available No t Available Wegovy 0.25 mg/0.5 mL subcutaneou s pen injector 11/30 completed Not Available Not Available Not Available Vitals Date Recorded Body height Body mass index (BMI) Body weight Provider Name and Address Organization Details Last Updated DateTime 07/19/2024 162.56 cm 33.6 kg/m2 495[address].1 [place] [address] [place], [address], [facility] 07/19/2024 10:03:21 Date Recorded Body height Body mass index (BMI) Body weight Provider Name and Address Organization Details Last Updated DateTime 07/25/2024 162.56 cm 33.5 kg/m2 81541.51 [place] [address] [place], [address], [facility] 07/25/2024 11:10:00 Date Recorded Body height Body mass index (BMI) Body weight Provider Name and Address Organization Details Last Updated DateTime 08/28/2024 162.56 cm 32.6 kg/m2 19[address].55 [place] [address] [facility] [address], [facility] 08/28/2024 08:09:45 Date Recorded Body height Body mass index (BMI) Body weight Provider Name and Address Organization Details Last Updated DateTime 10/02/2024 162.56 cm 32.1 kg/m2 10485.[place] [address] [address] [id number], [facility] 10/02/2024 11:38:41 Date Recorded Body height Body mass index (BMI) Body weight Provider Name and Address Organization Details Last Updated DateTime 11/27/2024 162.56 cm 32.1 kg/m2 436[address].[place] [address] [facility] [address], [facility] 11/27/2024 10:36:41 Social History None recorded. Functional Status None recorded. Mental Status None recorded. Family History Relationship Description Onset Age of this Age Resolved Age Notes LastModified by Organization Details LastModified Time Father No current problems or disability Not available 12:14:44 Mother No current problems or disability [email or web address] Not available 12:14:45 Medical History Condition Response Anxiety Disorder Y Depression/ depression Y Gynecological History Statement/Question Response Date of Last Mammogram 10/25/2023 Date of Last Colonoscopy 05/23/2019 Date of LMP 03/27/2024 Date of Last Pap Smear 05/23/2018 Current Control Method Partner Vas ectomy Approximate Hormone Replacement Therapy Yes Obstetrics History GPAL:G 2 P 0 0 0 2 Type Value Living 2 Total 2 Past Encounters Encounter ID Performer Location Encounter Start Date Encounter Closed Date Diagnosis/Indication Diagnosis SNOMED-CT Code Diagnosis ICD10 Code Diagnosis Note [id number] Trudi Jenkins NP Main Office [id number] [place] [address] 03/08/2023 08:00:27 03/09/2023 05:58:36 Menopausal symptom 67943882 N95.1 - Patient's reported symptoms such as mood changes, anxiety, depression , brain fog, and sleep disturbanc es are consistent with menopausal symptoms. These symptoms are likely due to the fluctuatin g and overall decline in estrogen levels associated with perimenopa use.- Patient advised of the risks and benefits associated with HRT. Patient will report any new or worsening symptoms.- Initiated hormone replacemen t therapy (HRT) using bioidentic al hormones, specifical ly estrogen and progestero ne. The estrogen will be administer ed via a transderma l patch and the progestero ne will be taken orally at night.- The HRT should help alleviate the patient's symptoms, improve sleep quality, and potentiall y enhance focus and mental clarity.- Scheduled a follow-up appointmen t in four weeks to assess the patient's response to the HRT and make any necessary adjustment s to the treatment plan. [facility] ion care management [id number] Z30.9 - Pt partner had vasectomy [id number] Trudi Jenkins NP Main Office [address] [place] [address] 04/05/2023 08:00:11 04/18/2023 06:01:32 Menopausal symptom 45765221 N95.1 - Patient's reported improvemen t in mood and overall well-being suggests that the current hormone replacemen t therapy is effective in managing her menopausal symptoms.- Encouraged the patient to continue with the current treatment regimen as it appears to be well-gauri ated and beneficial .- Noted the patient's report of a period since starting the hormone therapy, which can be a side effect of the treatment. Will continue to monitor this.- Advised the patient to schedule a mammogram and pap smear for routine screening, particular ly important given the hormone therapy.- Scheduled a follow-up appointmen t in mid- to reassess the patient's symptoms and response to treatment. Recurrent major depression 29519035 F33.9 - Patient's reported significan t improvemen t in mood suggests a positive response to the hormone replacemen t therapy, which can have a substantia l impact on mood regulation .- Will continue the current treatment plan and monitor for any changes in the patient's mood or depressive symptoms.- Scheduled a follow-up appointmen t in to reassess the patient's mood and overall mental health.- Encouraged the patient to reach out if there are any significan t changes in mood or if depressive symptoms worsen. [id number] Trudi Jenkins NP Main Office [address] [place] [address] 06/08/2023 08:00:02 06/09/2023 03:43:35 Menopausal symptom [id number] N95.1 - Patient's report of mood swings and depressive feelings are consistent with menopausal symptoms.- Plan to increase the dose of estrogen from 0.025 to 0.0375 to help manage these symptoms.- continue progestero ne 100mg PO HS- Educated the patient about potential side effects of increased estrogen, including breast tenderness , headaches, and nausea.- Scheduled a follow-up appointmen t to assess the patient's response to the increased estrogen dose. Recurrent major depression [id number] F33.9 - Patient's report of depressive feelings and mood swings are consistent with recurrent major depression .- Plan to increase the dose of estrogen, which may have a positive impact on the patient's mood.- consider SSRI if sx do not improve- Encouraged the patient to monitor their mood and reach out if they need assistance before the next scheduled appointmen t. pt contracts for safety. [id number] Trudi Jenkins NP Main Office [address] [place] [address] 07/20/2023 08:31:04 07/21/2023 03:49:53 Menopausal symptom [id number] N95.1 - The recent increase in estrogen dose has led to the induction of a period, which is consistent with the patient's perimenopa usal status.- Mood improvemen t has been noted, indicating effective management of menopausal symptoms with the current estrogen dose.- No changes will be made to the current dose and the patient will continue on the same regimen.- Scheduled a follow-up appointmen t in October to reassess the patient's condition and make any necessary adjustment s to the treatment plan. Recurrent major depression [id number] F33.9 - The patient reports improved mood and a reduction in feelings of sadness, depression , anger, and anxiety, suggesting effective management of recurrent major depression .- The patient is also taking Adderall for ADHD, which does not interfere with the current regimen.- The patient will continue on the current regimen without any changes.- Scheduled a follow-up appointmen t in October to monitor the patient's mood and adjust the treatment plan if necessary. [id number] Trudi Jenkins NP Main Office [address] [place] [address] 11/02/2023 14:07:51 11/03/2023 11:49:59 Menopausal symptom 91552640 N95.1 - Patient experienci ng weight gain and fatigue, which may be influenced by menopausal hormonal changes.- Discussed the role of hormone replacemen t therapy (HRT) in managing menopausal symptoms, which the patient is currently on.- No changes to current HRT regimen at this time. Obesity 268467426 E66.9 - Patient reports a significan t weight gain over the past few years, going from a comfortabl e weight of 140-145 lbs to 200 lbs.- current weight 200lb, BMI 34.3- labs pending at time of visit- Discussed GLP-1 receptor agonists. r/b/a discussed. - Initiate prior authorizat ion process for Wegovy- Discussed potential side effects, including GI issues, and the importance of ongoing treatment to maintain weight loss.- Follow-up appointmen t scheduled for November 30 to discuss progress and any needed adjustment s to the treatment plan.- Risks, benefits, and alternativ es of the medication s and treatment plan prescribed today were discussed, and patient expressed understand ing. Plan follow-up as discussed or as needed if any worsening symptoms or change in condition. Abnormal weight gain 161 [id number] R63.5 - Patient's weight gain is a concern, especially given the potential for developing comorbid conditions such as hypertensi on and diabetes.- Discussed the importance of dietary changes, including increasing protein and fiber intake, to help manage weight and reduce sugar cravings.- Provided resources for nutrition informatio n and suggested adilson salazar a nutrition consult with a focus on midlife nutrition. Fatigue [id number] R53.83 - Patient reports fatigue, which may be contributi ng to increased sugar and carbohydra te cravings.- Discussed the importance of addressing underlying causes of fatigue, including potential hormonal imbalances and lifestyle factors.- No specific treatment changes at this time, but will monitor patient's progress and consider further evaluation if needed. 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 Body mass index 30+ - obesity [id number] Z68.30 - Patient's current BMI falls within the 30.0-30.9 range, categorizi maryana her as obese.- Focus on weight loss strategies , including the potential use of Wegovy, to help reduce BMI and associated health risks.- No specific changes to treatment at this time, but will monitor BMI as part of the overall treatment plan. [id number] Trudi Jenkins NP Main Office [address] [place] [address] 12/01/2023 07:03:29 12/07/2023 05:06:18 Menopausal symptom [id number] N95.1 - Patient experienci ng weight gain and fatigue, which may be influenced by menopausal hormonal changes. see plan below- Discussed the role of hormone replacemen t therapy (HRT) in managing menopausal symptoms, which the patient is currently on.- No changes to current HRT regimen at this time. Obesity 993373913 E66.9 - Patient reports a significan t weight gain over the past few years, going from a comfortabl e weight of 140-145 lbs to 200 lbs.- current weight 200lb, BMI 34.3- Discussed various pharmacolo gical options for weight management , patient prefers to focus on lifestyle changes.- Encouraged patient to incorporat e daily aerobic exercise, such as walking, and to focus on hydration and a diet rich in high-prote in and high-fiber foods. - Discussed the benefits of maintainin g a healthy weight and the role of exercise in increasing HDL levels. - Follow-up in March to monitor progress and reevaluate the need for any additional interventi ons. Recurrent major depression 62001444 F33.9 - Patient is currently taking Wellbutrin 150 mg daily for depression management .- Discussed the potential benefits of increasing the dose to 300 mg with the patient's psychiatri st, especially in the context of ADHD and appetite control.- Patient to discuss this option with their psychiatri st.- No changes to the current regimen recommende d at this time.- Follow-up in March to reassess and discuss any concerns. [id number] Trudi Jenkins NP Main Office [address] [place] [address] 03/29/2024 09:08:59 03/30/2024 10:14:06 Abnormal weight gain [id number] R63.5 - Patient reports weight gain from 200 lbs in November to 215 lbs currently. - Educated patient on the importance of maintainin g a balanced diet, focusing on protein intake, and avoiding refined carbohydra chiara and added sugars.- Discussed the potential benefits of semaglutid e for weight management .- Patient agrees to start compounded semaglutid e , aware not FDA approved- Follow-up scheduled for May 10 at 10:30 AM to monitor weight and review lab results.- Risks, benefits, and alternativ es of the medication s and treatment plan prescribed today were discussed, and patient expressed understand ing. Plan follow-up as discussed or as needed if any worsening symptoms or change in condition. Menopausal symptom [id number] [id number] N95.1 HRT regimen--e stradiol 0.0375mg semiweekly patch, progestero ne 100mgcontr aception: partner vasectomy - perimenopa usal pt experienci ng symptoms including weight gain and irregular periods.- Discussed the impact of estrogen on metabolism and weight gain during perimenopa use.- Ordered labs- Educated patient on the importance of tracking menstrual cycles and symptoms. TVUS ordered to evaluate endometriu m and r/o structural abnormalit ies.- Follow-up scheduled for May 10 at 10:30 AM to review lab results and monitor symptoms.- No changes to current HRT regimen at this time.- Risks, benefits, and alternativ es of the medication s and treatment plan prescribed today were discussed, and patient expressed understand ing. Plan follow-up as discussed or as needed if any worsening symptoms or change in condition. Obesity [id number] E66.9 current BMI 36.9- current weight: 215 lbs, up from 200 lbs in November 2023.- goal: lose 30 lb.- comorbidit ies: none- Patient's BMI indicates obesity.- Discussed the benefits of GLP-1 receptor agonists- Patient agrees to start compounded semaglutid e from [facility] in [place].- Provided patient with a video tutorial on how to administer the injections .- Follow-up scheduled for May 10 at 10:30 AM to monitor weight and review lab results.- Risks, benefits, and alternativ es of the medication s and treatment plan prescribed today were discussed, and patient expressed understand ing. Plan follow-up as discussed or as needed if any worsening symptoms or change in condition. Abnormal u terine bleeding [id number] 9100 N93.9 - Last menstrual period documented as February 25, 2023.- Ordered pelvic ultrasound to evaluate endometria l lining and rule out abnormalit ies.- Ultrasound to be performed at [facility], [address] [place] [address].- Provided patient with the contact number for scheduling : .- Follow-up scheduled for May 10 at 10:30 AM to review ultrasound results and monitor for any further bleeding. [id number] Trudi Jenkins NP Main Office [address] [place] [address] 05/10/2024 09:38:54 05/31/2024 21:16:11 Menopausal symptom [id number] N95.1 HRT regimen--e stradiol 0.0375mg semiweekly patch, progestero ne 100mgcontr aception: partner vasectomy - HRT dosing stable- Discussed importance of TVUS for VB episode, agrees to schedule TVUS- Ordered FSH blood test to determine menopausal status- No changes to current HRT regimen at this time.- Risks, benefits, and alternativ es of the medication s and treatment plan prescribed today were discussed, and patient expressed understand ing. Plan follow-up as discussed or as needed if any worsening symptoms or change in condition. Obesity [id number] E66.9 semaglutid e 0.25mg weekly x4 injections - current weight: 207lb (-7 lb since last visit)- starting weight: 215 lbs March 2024- goal: lose 30 lb.- comorbidit ies: none- Patient has been on semaglutid e 0.25 mg and has lost approximat luna 8 lbs, now weighing around 207 lbs.- Discussed the option to increase the semaglutid e dose to 0.5 mg, which correspond s to 50 units on the insulin syringe.- Educated the patient on the potential side effects of semaglutid e and the importance of hydration and protein intake.- Advised the patient to monitor for any side effects and to report them immediatel y.- Scheduled a follow-up appointmen t for June 14 at 10 AM to review weight and progress on the new dose.- Risks, benefits, and alternativ es of the medication s and treatment plan prescribed today were discussed, and patient expressed understand ing. Plan follow-up as discussed or as needed if any worsening symptoms or change in condition. Abnormal u terine bleeding [id number] 9100 N93.9 - Last menstrual period documented as February 25, 2023. BTB on May 2023, and again March 2024. TVUS previously ordered; pt understand s importance of completing this. FSH labs ordered.- Provided the patient with the contact informatio n for [facility] to schedule the ultrasound .- Advised the patient to schedule the ultrasound - Provided patient with the contact number for scheduling : [phone] .- Follow-up scheduled- Risks, benefits, and alternativ es of the medication s and treatment plan prescribed today were discussed, and patient expressed understand ing. Plan follow-up as discussed or as needed if any worsening symptoms or change in condition. [id number] Trudi Jenkins NP Main Office [address] [place] [address] 06/14/2024 09:07:04 06/15/2024 04:05:51 Menopausal symptom 33541457 N95.1 HRT regimen--e stradiol 0.0375mg semiweekly patch, progestero ne 100mgcontr aception: partner vasectomy - HRT dosing stable- Discussed importance of TVUS for VB episode, agrees to schedule TVUS- Ordered FSH blood test to determine menopausal status- No changes to current HRT regimen at this time.- Risks, benefits, and alternativ es of the medication s and treatment plan prescribed today were discussed, and patient expressed understand ing. Plan follow-up as discussed or as needed if any worsening symptoms or change in condition. Attention deficit hyperactivity disorder, predominantly inattentive type 03241756 F90.0 - No changes to current treatment at this time, but will consider the impact of ADHD on the patient's overall health and treatment plan. Abnormal u terine bleeding [id number] 9100 N93.9 - Patient reported an episode of abnormal uterine bleeding on election day in March.- Ultrasound and blood work were previously ordered but not yet completed. - Reiterated the importance of completing the ultrasound and blood work to rule out any underlying pathology. - Provided the patient with the option to have the ultrasound ordered through her primary care provider or to use the existing order.- Patient agreed to use the existing order for the ultrasound .- Advised the patient to schedule the ultrasound as soon as possible and to reach out via the portal if there are any issues with scheduling . Obesity 259702392 E66.9 - Current weight: 203 lbs, with a 2-pound weight loss since the last visit.- Patient is currently on semaglutid e 0.5 mg for weight management .- Discussed the patient's experience with semaglutid e, including a brief interrupti on in therapy due to a delay in refilling the prescripti on.- Patient reported initial nausea and increased cravings for sugar, which have since stabilized .- Plan to increase the semaglutid e dose to 1 mg after completing the current 0.5 mg dose.- Prescripti on for 1 mg semaglutid e sent to [facility] for cost efficiency .- Advised the patient to continue monitoring for side effects and to report any significan t changes.- [facility] at 10:15 AM to reassess weight management and medication efficacy.- Risks, benefits, and alternativ es of the medication s and treatment plan prescribed today were discussed, and patient expressed understand ing. Plan follow-up as discussed or as needed if any worsening symptoms or change in condition. [id number] Trudi Jenkins NP Main Office [address] [place] [address] 07/02/2024 08:45:03 07/03/2024 04:18:18 Obesity 060117503 E66.9 - Patient has been on semaglutid e therapy and has experience d significan t weight loss, currently down to 198 lbs from a starting weight of 215 lbs.- Patient advised to take 40 units for the next 3 weeks and to message via the portal between the and of this month with an update on weight and side effects.- Discussed the importance of gradual weight loss to avoid muscle mass loss and emphasized the goal of losing fat rather than muscle.- Advised patient to monitor for nausea and to use Zofran (ondansetr on) as needed, but to avoid overuse- Follow-up appointmen t scheduled for August 13 at 9:30 AM to reassess weight and side effects, and to determine if the dose should be increased to 1.7 mg (60 units).- Risks, benefits, and alternativ es of the medication s and treatment plan prescribed today were discussed, and patient expressed understand ing. Plan follow-up as discussed or as needed if any worsening symptoms or change in condition. [id number] Trudi Jenkins NP Main Office [address] [place] [address] 07/19/2024 09:08:44 07/20/2024 04:06:57 Menopausal symptom 31760331 N95.1 HRT regimen--e stradiol 0.0375mg semiweekly patch, progestero ne 100mgcontr aception: partner vasectomy - HRT dosing stable- Discussed importance of TVUS for VB episode, agrees to schedule TVUS- Ordered FSH blood test to determine menopausal status- No changes to current HRT regimen at this time.- Risks, benefits, and alternativ es of the medication s and treatment plan prescribed today were discussed, and patient expressed understand ing. Plan follow-up as discussed or as needed if any worsening symptoms or change in condition. Obesity 284289373 E66.9 - Patient has been on semaglutid e therapy, currently at 40 units, with significan t side effects including nausea and discomfort .- Weight has decreased from 215 lbs to 196 lbs, indicating a 20-pound weight loss.- Discussed alternativ e medication s including Zepbound and tirzepatid e which may have a better side effect profile.- Educated patient on the importance of regular small meals to manage nausea.- Patient prefers to increase the dose to 1.5 mg of semaglutid e despite side effects to achieve weight loss goals more rapidly.- Prescripti on for semaglutid e 1.5 mg sent to [facility].- Patient advised to monitor for side effects and report any intolerabl e symptoms.- Follow-up appointmen t scheduled for August 13.- Risks, benefits, and alternativ es of the medication s and treatment plan prescribed today were discussed, and patient expressed understand ing. Plan follow-up as discussed or as needed if any worsening symptoms or change in condition. Abnormal weight gain 161 880721 R63.5 - Patient's weight has stabilized at 196 lbs with a previous weight of 198 lbs on July 02.- Weight loss of 20 lbs from starting weight of 215 lbs noted.- Patient reports feeling less bloated and more comfortabl e in clothing.- Continued monitoring of weight and side effects from semaglutid e therapy.- Encouraged patient to maintain regular small meals to manage side effects and support weight loss. [id number] Amisha Bahena NP Main Office [address] [place] [address] 07/25/2024 10:13:25 07/26/2024 04:13:26 Abnormal uterine bleeding [id number] 9100 N93.9 - Patient has not yet completed the recommende d ultrasound to evaluate the cause of abnormal uterine bleeding.- Educated the patient on the importance of ruling out serious conditions such as endometria l cancer.- Advised the patient to schedule the ultrasound as soon as possible to ensure there are no underlying serious conditions .- Patient understand s the necessity of the ultrasound and has been encouraged to schedule it immediatel y. Obesity 853940462 E66.9 - Patient is currently on semaglutid e 1.5 mg weekly for weight management .- Recent weight recorded at 193 lbs, with a slight increase to 195 lbs noted today- Patient experienci ng mild nausea, bloating, and feeling uncomforta ochoa full, which has improved slightly.- Discussed the potential side effects of semaglutid e, including its impact on gastrointe stinal motility.- Reassured the patient that the symptoms are likely related to the medication and not indicative of gastropare sis, though GLP-1 agonists can cause or exacerbate gastropare sis and she should monitor for worsening symptoms.- Advised the patient to continue with the current dose of semaglutid e and monitor symptoms. If she develops severe abdominal pain, vomiting, or inability to tolerate PO intake, she should seek urgent care.- Patient to follow up with usual clinician in three weeks for further evaluation .- Patient understand s and agrees with the treatment plan and will contact the clinic if symptoms worsen or if there are any concerns before the next scheduled visit.- We did discuss the nature of our virtual clinic and how we handle urgent patient complaints at length and she is very grateful for our ability to schedule her in for an urgent visit today. [id number] Trudi Jenkins NP Main Office [address] [place] [address] 08/28/2024 07:10:26 08/29/2024 04:20:42 Menopausal symptom 98091750 N95.1 - Patient experience s difficulty staying asleep; currently on 100 mg oral progestero ne daily.- Advised to increase progestero ne to 200 mg at bedtime- Educated on potential increased sedation- Advised to continue current estrogen dose with possible future dose escalation if sleep disturbanc es persist.- Instructed to monitor response over the next few weeks and discontinu e morning dosing habit in favor of bedtime dosing.- Discussed importance of TVUS for VB episode, agrees to schedule TVUS- Risks, benefits, and alternativ es of the medication s and treatment plan prescribed today were discussed, and patient expressed understand ing. Plan follow-up as discussed or as needed if any worsening symptoms or change in condition. Attention deficit hyperactivity disorder, predominantly inattentive type 45924127 F90.0 - Continues on Adderall, two tablets in the morning and one midday as needed; inconsiste nt midday usage reported.- Discussed possibilit y of afternoon dosing interferin g with sleep if taken too late.- Emphasized the importance of adequate sleep for optimizing ADHD symptom control; no new medication changes. Obesity 181753633 E66.9 - Noted a total weight loss of approximat luna 25 pounds since March.- Current semaglutid e dosing is 1.5 mg (60 units) subcutaneo usly weekly; advised to titrate to 70 units weekly (approxima tely 1.75 mg) to continue gradual weight reduction while minimizing gastrointe stinal side effects.- Reinforced importance of hydration, regular protein intake, and interval walking.- Scheduled a follow-up in four weeks (September 26 at 11:45 AM) to reassess dosing and progress.- Risks, benefits, and alternativ es of the medication s and treatment plan prescribed today were discussed, and patient expressed understand ing. Plan follow-up as discussed or as needed if any worsening symptoms or change in condition. Abnormal u terine bleeding [id number] 9100 N93.9 - Postmenopa usal bleeding episode in March.- Recommende d transvagin al ultrasound to evaluate the endometriu m and rule out possible pathology. - Educated on concern of uterine pathology in the setting of postmenopa usal bleeding.- Encouraged patient to reschedule the imaging at a convenient facility and complete evaluation for definitive clarificat ion.- Advised the patient to schedule the ultrasound as soon as possible and to reach out via the portal if there are any issues with scheduling . Recurrent major depression 84531565 F33.9 - Patient is currently taking Wellbutrin 150 mg daily for depression management .- Discussed the potential benefits of increasing the dose to 300 mg with the patient's psychiatri st, especially in the context of ADHD and appetite control.- Patient to discuss this option with their psychiatri st.- No changes to the current regimen recommende d at this time.- Follow-up in March to reassess and discuss any concerns. Obstructiv e sleep apnea syndrome 48871931 G47.33 - Has not yet initiated therapy with CPAP despite prior recommenda tion.- Explained that continuous positive airway pressure usage may reduce symptoms; encouraged to use prescribed device for improved sleep quality and overall health.- Reinforced that ongoing weight loss may also alleviate obstructiv e sleep apnea severity. [id number] Trudi Jenkins NP Main Office [address] [place] [address] 10/02/2024 11:01:07 10/05/2024 05:34:13 Menopausal symptom 60768438 N95.1 - Patient reports increased mood disturbanc es.- Increasing transderma l estrogen patch from 0.0375 mg to 0.05 mg for symptom control.- Continuing oral progestero ne, 2 capsules at bedtime, to ensure adequate supply and to balance exogenous estrogen.- Denies any bleeding, reminded pt to obtain TVUS for prior spotting episode.- Discussed r/b/a of e2- Patient instructed to monitor for any adverse effects, including changes in mood or sleep pattern, and to notify clinic if symptoms worsen.- Risks, benefits, and alternativ es of the medication s and treatment plan prescribed today were discussed, and patient expressed understand ing. Plan follow-up as discussed or as needed if any worsening symptoms or change in condition. Obesity 098410437 E66.9 - Current weight recorded at 187 lbs, reflecting continued gradual weight reduction since the last visit.- Semaglutid e re-prescri bed through [facility] with a slow titration schedule to minimize gastrointe stinal side effects: Increase thereafter to 70 units for two weeks. Increment ally advance to 80 units after adjusting to the new estrogen dose for at least two weeks.- Patient advised to follow up on October 31 at 11:30 for monitoring of weight and medication tolerance. - Risks, benefits, and alternativ es of the medication s and treatment plan prescribed today were discussed, and patient expressed understand ing. Plan follow-up as discussed or as needed if any worsening symptoms or change in condition. Abnormal u terine bleeding [id number] N93.9 - bleeding episode in March.- Recommende d transvagin al ultrasound to evaluate the endometriu m and rule out possible pathology. - Encouraged patient to reschedule the imaging at a convenient facility and complete evaluation for definitive clarificat ion.- Advised the patient to schedule the ultrasound as soon as possible and to reach out via the portal if there are any issues with scheduling . [id number] Trudi Jenkins NP Main Office [address] [place] [address] 11/27/2024 09:57:50 11/28/2024 04:49:09 Attention deficit hyperactivity disorder, predominantly inattentive type [id number] F90.0 - Continues on Adderall, two tablets in the morning and one midday as needed; inconsiste nt midday usage reported.- Discussed possibilit y of afternoon dosing interferin g with sleep if taken too late.- Emphasized the importance of adequate sleep for optimizing ADHD symptom control; no new medication changes. Obesity [id number] E66.9 - labs as noted. Recurrent major depression [id number] F33.9 - Patient is currently taking Wellbutrin 150 mg daily for depression management .- Discussed the potential benefits of increasing the dose to 300 mg with the patient's psychiatri st, especially in the context of ADHD and appetite control.- Patient to discuss this option with psychiatri st. Abnormal u terine bleeding [id number] 9100 N93.9 - bleeding episode in March and November- plan as below Diet education [id number] Z71.3 Overweight [id number] E66 .3 - Diagnosis: Overweight - Assessment : Continues to maintain 28 lb loss after semaglutid e discontinu ation; risk of regain without structured dietary support.- Plan: Discussed options including continued GLP-1 therapy versus lifestyle modificati on; agreed to focus on nutrition first.- Ordered diagnostic tests: Fasting lipid panel, HbA1c, comprehens jose metabolic panel.- Lifestyle measures: Emphasized high protein and fiber intake and gradual return to strength training.- Referrals: Referral to [facility] nutrition program for weekly accountabi lity.- Follow up: Telehealth visit in 1 month to assess progress.- Risks, benefits, and alternativ es of the medication s and treatment plan prescribed today were discussed, and patient expressed understand ing. Plan follow-up as discussed or as needed if any worsening symptoms or change in condition. Abnormal v aginal bleeding [id number] N92.6 - Diagnosis: Irregular menstruati on, perimenopa usal- Assessment : Intermitte nt bleeding pattern unclear for menopausal status; further evaluation warranted. - Plan: Obtain pelvic ultrasound result and evaluate FSH level to clarify menopause status; emphasized importance of in-person gynecologi c exam.- Ordered diagnostic tests: Serum FSH level.- Referrals: Gynecology referral placed to [facility]; phone .- Follow up: Schedule gynecology visit once referral accepted; review results at next Mid[facility] follow up.- Risks, benefits, and alternativ es of the medication s and treatment plan prescribed today were discussed, and patient expressed understand ing. Plan follow-up as discussed or as needed if any worsening symptoms or change in condition. Health Concerns Section Related Observation LastModified by Organization Detai ls LastModified Time None Recorded Concern Status LastModified by Organization Details LastModified Time None Recorded Advance Directives Directive None Recorded Payers Insurance Date Sequence Insurance Name Policy Number Policy Smith Covered Member ID Smith Member ID Guarantor Name 12/05/2024 1 [facility] [id number] David Gonzalez [id number] Damari Gonzalez Notes Date Note Type Note Provider Name and Address Organization Details Recorded Time 07/19/2024 text/html Patient is a 54 year old female presenting for a follow-up visit to discuss her experience with semaglutide for weight management, and to refill her estradiol prescription. Weight Management:- current weight: 196lb- starting weight: 215 lbs March 2024- goal weight: 157lb- She reports experiencing nausea after her first 1mg dose, which she describes as brutal. - The onset of these symptoms was on the , the day after she took her first dose, and they gradually improved over the following days.- She is currently on a dose of 40 units of semaglutide.- Despite the discomfort, the patient wishes to continue with the medication as she believes her obesity is a more significant issue.- She reports a starting weight of 215 lbs, and her current weight is 196 lbs, indicating a loss of 19 lbs since starting the medication.- She notes feeling less bloated and tired since losing weight, and her clothes fit better. Menopausal Symptoms:- Patient reports her last menstrual period was in March.- She is currently out of estradiol and needs a refill. Medication History:- Patient is currently on bupropion 150 mg, Adderall 10 mg three times a day, and venlafaxine 225 mg.- She has discontinued clonazepam and Vesicare.- She has Zofran on hand for nausea related to semaglutide use. Virtual Visit AttestationModality: VideoProvider Location: HomePatient State: [place] [address] [place], [address], [facility] 07/22/2024 15:16:46 07/25/2024 text/html Patient is a 54 year old female presenting for a follow-up visit to discuss ongoing weight management, menopausal symptoms, and abnormal uterine bleeding. Weight Management:- Patient is currently on semaglutide 1.5 milligrams weekly for weight management. She has used one injection at this dose so far.- She reported a recent weight increase from 193 lbs to 195 lbs, which she found frustrating given her reduced food intake due to medication side effects. This is still a reduction from her 196lbs just under a week ago.- She expressed a strong desire to continue with the medication as it has been effective in managing her weight. Menopausal Symptoms:- Patient is currently on estradiol 0.0375 patch twice a week and progesterone 100 at bedtime for menopausal symptoms and these work well for her. Abnormal Uterine Bleeding:- Patient reported that she has not yet undergone the recommended ultrasound for her abnormal uterine bleeding.- Her last menstrual period was on March 27. Gastrointestinal Symptoms:- Patient reported experiencing mild nausea, bloating, and feeling uncomfortably full since starting semaglutide- She reported having a bowel movement once a day, which is normal for her and was the case before she started semaglutide- She noted that her bloating and fullness symptoms were briefly worse for a couple of days after increasing her semaglutide dose to 1.5 milligrams, but have since improved.- She reported feeling more bloated than usual for the past 3 to 4 days, to the point where the sight of food made her feel nauseous- Despite these symptoms, she was able to eat normal meals today and feels her bloating and fullness are actually a bit better. Mental Health:- Patient has a history of ADHD and depression.- She is currently on Lamotrigine (Lamictal) 200 milligrams twice a day for her mental health conditions.- She is working with her psychiatrist to optimize her medication regimen, with the goal of minimizing the number of medications she needs to take. Virtual Visit AttestationModality: VideoProvider Location: HomePatient Location: HomePatient State: [place] [address] [place], [address], [facility] 07/26/2024 08:41:56 08/28/2024 text/html The patient is a 54-year-old female with a history of perimenopausal symptoms, weight management, and sleep apnea presenting for follow-up. Perimenopausal Symptoms- LMP: March 27- Reports a history of irregular menstrual cycles, with the last period occurring on March 27.- Experienced an episode of bleeding in March, with no subsequent bleeding since then.- Currently on HRT, taking 100 mg of progesterone daily and estrogen.- Has been taking progesterone in the morning to avoid forgetting the dose.- Has not yet completed the recommended ultrasound to investigate the cause of the bleeding episode. Sleep Apnea- Diagnosed with mild sleep apnea following a sleep study conducted about a month ago.- Has not yet started using the prescribed CPAP machine, expressing skepticism about its effectiveness.- Reports waking up approximately four hours after falling asleep, leading to modifications in her work schedule to accommodate a nap during the day and work at night.- Currently taking lamotrigine 200 mg and venlafaxine for mood stabilization and ADHD management.- Also taking Adderall, two tablets in the morning and one midday, but reports inconsistent adherence to the midday dose. Weight Management- Currently on semaglutide, taking 60 units (1.5 mg) per dose.- current weight: 190lb- starting weight: 215 lbs March 2024- goal weight: 157lb- Missed one dose in the week of the but resumed the medication the following Tuesday.- Reports a stable weight of around 190 lbs for the past few weeks, with a starting weight of 215 lbs.- Has lost a total of 25 lbs since March, with a goal weight of 157 lbs.- Initially experienced nausea and bloating with semaglutide but reports improvement in these side effects.- Has been able to increase physical activity, including walking, as the weather has improved. PMHx:- Mild Sleep Apnea (diagnosed about a month ago)- ADHD Current Meds:- Semaglutide 1.5 mg- Progesterone 100 mg- Lamotrigine 200 mg- Venlafaxine- Adderall 2 tabs in the morning and 1 midday Virtual Visit AttestationModality: VideoProvider Location: HomePatient Location: HomePatient State: [place] [address] [place], [address], [facility] [employer] 09/02/2024 17:36:41 10/02/2024 text/html The patient is a 54-year-old female with a history of menopause and obesity presenting for medication refills and management of menopausal symptoms and weight loss. Menopausal Symptoms- Currently on estrogen 0.0375 mg and progesterone 200 mg nightly.- Reports recurrence of depression and moodiness, which were previously well-controlled with current estrogen dose.- Considering increasing estrogen dose to 0.05 mg to manage depressive symptoms.- Experiencing sleep disturbances, attributing them to caffeine intake and 's Parkinson's disease-related movements during sleep.- Using a CPAP machine. Weight Management- Currently on semaglutide, recently increased to 70 units; experienced nausea initially but reports improvement.- Missed a dose last week, took 35 units instead of 70.- Current weight is 187 lbs, down from 215 lbs in March; lost 3 lbs recently.- starting weight: 215 lbs March 2024- goal weight: 157lb Virtual Visit AttestationModality: VideoProvider Location: HomePatient Location: HomePatient State: [place] [address] [place], [address], [facility] [employer] 10/05/2024 20:26:11 11/27/2024 text/html Virtual Visit AttestationModality: VideoProvider Location: HomePatient Location: HomePatient State: MAChief complaint: Weight management concerns after discontinuing semaglutide and recent return of menstrual bleeding. History of present illness hpi: Female presenting with weight maintenance concerns after stopping semaglutide and new onset of menstrual bleeding. Weight management after stopping semaglutide - Discontinued semaglutide injection one to two months ago after experiencing significant nausea and gastrointestinal upset. - Current weight remains 187 lb, unchanged since October 02; starting weight prior to semaglutide therapy was 215 lb. - Reports limited exercise over the past several weeks and feels physically weaker; worries about loss of muscle mass. - Expresses difficulty with follow-through on lifestyle changes, attributing challenges partly to ADHD and menopausal symptoms. 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 Return of menses and irregular periods - Experienced full menstrual period beginning November 23; prior true period recalled on March 27, 2024. - Previously had increasingly spaced cycles, with a period documented February 25 2023 after six-month gap. - Noted spotting March 2024 while on hormone replacement therapy; uncertain menopause status. - Wonders if resumption of menses is related to stopping semaglutide. - Pelvic ultrasound scheduled for December 06 2024 to evaluate bleeding. Screening history: Pelvic ultrasound scheduled 12 06 2024 for abnormal bleeding evaluation. Vital signs: Weight 187 lb (reported); blood pressure described as normal Imaging results: Pelvic ultrasound scheduled 12 06 2024 [place] [id number] [address], [place], [address], [facility] [employer] 11/27/2024 13:49:34 OBGyn Episode No OBEpisode recorded.
== END 2024-12-07 12:58 | disposition home or self-care (01) ==
LOC: HO.US 12:57
PROVIDERS: PCP Nurse Practitioner Adult Health; Visit Provider Nurse Practitioner Family
DX: N95.1 Menopausal and female climacteric states (principal)
CPT/HCPCS: 76830; 76856

== ENCOUNTER → 2024-12-07 13:00 | Outpatient (BNV) | payer OTHER, SELFPAY | PROVIDERS: PCP Nurse Practitioner Adult Health; Visit Provider Radiology Diagnostic Radiology | DX: N85.8 Other specified noninflammatory disorders of uterus (principal) | CPT/HCPCS: 76830; 76856 ==